=== PATIENT | male | born 1970 | race Caucasian/White ===

== ENCOUNTER 2018-05-06 21:25 | Emergency (ER) | payer MEDICAID, SELFPAY ==
[~2018-05-06] VITALS: Ht 165.1 cm; Wt 70.0 kg
[2018-05-06 23:42] LABS: ALBUMIN 2.8 g/dL (3.4-5.0); ANION GAP 6 mmol/L (5-15); CALCIUM 8.7 mg/dL (8.5-10.1); CHLORIDE 108 mmol/L (98-107)
[2018-05-06 23:45] LABS: ALANINE AMINOTRANSFERASE 57 U/L (12-78); ALKALINE PHOSPHATASE 102 U/L (45-117); BILIRUBIN,TOTAL 0.3 mg/dL (0.2-1.0); CREATININE 0.92 mg/dL (0.7-1.3)
[2018-05-07 00:02] VITALS: BP 121/68
[2018-05-07 00:11] LABS: BASOPHILS # (AUTO) 0.04 x10^3/uL (0-0.1); BASOPHILS % (AUTO) 1 % (0-1); EOSINOPHILS # (AUTO) 0.21 x10^3/uL (0-0.4); EOSINOPHILS % (AUTO) 4 % (1-7); LYMPHOCYTES # (AUTO) 1.84 x10^3/uL (1-3.4); LYMPHOCYTES % (AUTO) 31 % (22-44); MD SCAN; MEAN CORPUSCULAR HEMOGLOBIN 31.1 pg (27.5-34.5); MEAN CORPUSCULAR HGB CONC 33.9 g/dL (33.2-36.2); MEAN CORPUSCULAR VOLUME 91.7 fL (81-97); MONOCYTES # (AUTO) 0.45 x10^3/uL (0.2-0.8); MONOCYTES % (AUTO) 8 % (2-9); NEUTROPHILS # (AUTO) 3.32 x10^3/uL (1.8-6.8); NEUTROPHILS % (AUTO) 57 % (42-75); PLATELET COUNT 908 x10^3/uL (130-400); RED BLOOD COUNT 4.67 x10^6/uL (4.38-5.82); RED CELL DISTRIBUTION WIDTH 13.8 % (9.4-14.8)
== END 2018-05-07 01:50 | disposition home or self-care (01) ==
LOC: ED 21:47
DX: K59.00 Constipation, unspecified (principal); R11.10 Vomiting, unspecified; R19.7 Diarrhea, unspecified
CPT/HCPCS: 36415; 74022; 80053; 83690; 85025; 99284

== ENCOUNTER 2018-07-25 15:15 | Emergency (ER) | payer OTHER, MEDICAID ==
[~2018-07-25] VITALS: Ht 170.2 cm; Wt 72.0 kg
[2018-07-25 15:23] VITALS: BP 118/78
--- NOTE | 2018-07-25 15:42 | NUR ---
patient transported for imaging
--- NOTE | 2018-07-25 15:49 | NUR ---
Patient escorted to ED by law enforcement from detention for approximately 6 weeks of reported visual decline and numbness/tingling of bilateral hands and feet. Patient reports he has had 3 episodes of severe headache with he describes as both "pressure" and "sharp" pain behind his right eye. Patient is alert, appropriate and pleasant. Plan of care discussed, questions answered.
[2018-07-25] MEDS ORDERED: PROPARACAINE OPHTH 0.5%, 15ML EACHEYE ONE (16:00)
--- NOTE | 2018-07-25 16:20 | NUR ---
REPORT FROM SHANIKA BRUCE
--- NOTE | 2018-07-25 16:55 | NUR ---
TASK RN: FIRST CONTACT WITH PATIENT. Patient/Caregiver given discharge instructions and they have confirmed that they understand the instructions. Patient ambulatory with steady gait. PT DISCHARGED WITH LAW ENFORCEMENT.PT LEFT WITH ALL PERSONAL BELONGINGS.
== END 2018-07-25 16:58 | disposition home or self-care (01) ==
LOC: ED 15:48
DX: H52.13 Myopia, bilateral (principal)
CPT/HCPCS: 70450; 99284

== ENCOUNTER 2019-09-30 09:20 | Emergency (ER) | payer MEDICAID, OTHER ==
[~2019-09-30] VITALS: Ht 170.2 cm; Wt 73.0 kg
--- NOTE | 2019-09-30 09:55 | NUR ---
Pt ambulated back to room, changed into gown, NAD, RESP WNL, skin warm and dry, L lower leg reddened and hot to touch. ABC intact, MAEx4. call light on lap, U/S at BS. [facility].
--- NOTE | 2019-09-30 10:36 | NUR ---
pt resting in gurney, lights dimmed for comfort, NAD, RESP WNL, ABC intact, P/W/D, L lower leg reddened. call light on lap. WCTM. waiting for US results.
[2019-09-30 11:10] VITALS: BP 125/71
--- NOTE | 2019-09-30 11:13 | NUR ---
Patient given discharge instructions and they have confirmed that they understand the instructions. Patient ambulatory with steady gait. Denies additional questions at this time.
== END 2019-09-30 11:38 | disposition home or self-care (01) ==
LOC: ED 11:21
DX: I80.02 Phlebitis and thrombophlebitis of superficial vessels of left lower extremity (principal); I80.232 Phlebitis and thrombophlebitis of left tibial vein
CPT/HCPCS: 99284